=== PATIENT | male | born 1960 | race Caucasian/White ===

== ENCOUNTER → 2019-03-15 | Outpatient (CLI) | payer OTHER ==
[~2019-03-15] MED LIST: AMOXICILLIN 50500 MG PO; ASA81BEC PO; ELIQUIS5 MG PO; GLUCOTROL5 MG PO; METFORMIN HCL500 M3 PO; OXYCODONE HCL 55 MG PO; PENICILLIN V P500 MG PO; UNICOMPLEX M TA1 TA1 PO
== END ==
LOC: SJCVCIMAG 08:30
DX: E11.9 Type 2 diabetes mellitus without complications (principal); I73.9 Peripheral vascular disease, unspecified; Z87.891 Personal history of nicotine dependence; I70.202 Unspecified atherosclerosis of native arteries of extremities, left leg

== ENCOUNTER → 2019-03-16 | Outpatient (CLI) | payer OTHER ==
[~2019-03-16] MED LIST changes: -ASA81BEC PO
== END ==
LOC: CAT 13:20
DX: Z13.6 Encounter for screening for cardiovascular disorders (principal); E78.00 Pure hypercholesterolemia, unspecified; I25.10 Atherosclerotic heart disease of native coronary artery without angina pectoris

== ENCOUNTER → 2019-05-01 | Outpatient (CLI) | payer OTHER ==
[~2019-05-01] VITALS: Ht 180.3 cm; Wt 92.5 kg
[~2019-05-01] MED LIST changes: +ASA81BEC PO
[2019-05-01 07:32] VITALS: BP 116/75
[2019-05-01 08:11] LABS: HEMATOCRIT 42.5 % (42.0-52.0); MCH 28.4 pg (26.0-34.0); MCHC 32.8 g/dL (28.0-37.0); MCV 86.4 fL (80.0-100.0); RBC 4.92 mil/uL (4.50-6.00); RDW 13.4 % (10.5-14.5); WBC 6.2 thou/uL (4.0-11.0)
[2019-05-01 08:14] LABS: CALCIUM 9.2 mg/dL (8.5-10.1); CREATININE 0.9 mg/dL (0.7-1.3); POTASSIUM 3.7 mmol/L (3.5-5.1)
[2019-05-01 10:58] VITALS: BP 121/74
[2019-05-01 11:01] VITALS: BP 121/74
== END | disposition home or self-care (01) ==
LOC: CATH 04-19 12:52
PROVIDERS: Nuclear Medicine Nuclear Cardiology
DX: I70.212 Atherosclerosis of native arteries of extremities with intermittent claudication, left leg (principal); I70.1 Atherosclerosis of renal artery; I10 Essential (primary) hypertension; E11.9 Type 2 diabetes mellitus without complications; I25.10 Atherosclerotic heart disease of native coronary artery without angina pectoris; J44.9 Chronic obstructive pulmonary disease, unspecified; Z98.890 Other specified postprocedural states; Z79.899 Other long term (current) drug therapy; Z85.828 Personal history of other malignant neoplasm of skin; Z87.891 Personal history of nicotine dependence; Z88.8 Allergy status to other drugs, medicaments and biological substances; Z79.01 Long term (current) use of anticoagulants; Z86.711 Personal history of pulmonary embolism

== ENCOUNTER → 2019-10-13 | Outpatient (CLI) | payer OTHER | LOC: SJCVCIMAG 08:27 | PROVIDERS: ATTEND Nuclear Medicine Nuclear Cardiology | DX: T82.856A Stenosis of peripheral vascular stent, initial encounter (principal); M79.604 Pain in right leg; Y83.8 Other surgical procedures as the cause of abnormal reaction of the patient, or of later complication, without mention of misadventure at the time of the procedure; Y92.89 Other specified places as the place of occurrence of the external cause ==

== ENCOUNTER → 2019-10-30 | Outpatient (CLI) | payer OTHER ==
[~2019-10-30] MED LIST changes: +ALBUTEROL0.63 MG/3 NEB; +PLAVIX 75 MG TA75 M1 PO
[2019-10-30 08:49] VITALS: BP 128/80
[2019-10-30 08:53] LABS: HEMATOCRIT 43.9 % (42.0-52.0); HEMOGLOBIN 14.9 gm/dL (14.0-18.0); MCHC 33.9 g/dL (28.0-37.0); MCV 88.5 fL (80.0-100.0); RBC 4.95 mil/uL (4.50-6.00); RDW 14.4 % (10.5-14.5); WBC 5.3 thou/uL (4.0-11.0)
[2019-10-30 08:59] LABS: CALCIUM 8.8 mg/dL (8.5-10.1)
== END | disposition home or self-care (01) ==
LOC: CATH 08:11
PROVIDERS: ATTEND Nuclear Medicine Nuclear Cardiology
DX: I70.213 Atherosclerosis of native arteries of extremities with intermittent claudication, bilateral legs (principal); I70.1 Atherosclerosis of renal artery; I10 Essential (primary) hypertension; J44.9 Chronic obstructive pulmonary disease, unspecified; E11.9 Type 2 diabetes mellitus without complications; Z98.890 Other specified postprocedural states; Z79.899 Other long term (current) drug therapy; Z79.4 Long term (current) use of insulin; Z87.891 Personal history of nicotine dependence; Z88.8 Allergy status to other drugs, medicaments and biological substances

== ENCOUNTER → 2019-10-31 | Outpatient (CLI) | payer OTHER | LOC: SJCVCIMAG 11:20 | PROVIDERS: ATTEND Nuclear Medicine Nuclear Cardiology | DX: I73.9 Peripheral vascular disease, unspecified (principal); E11.51 Type 2 diabetes mellitus with diabetic peripheral angiopathy without gangrene; I82.402 Acute embolism and thrombosis of unspecified deep veins of left lower extremity; Z95.818 Presence of other cardiac implants and grafts; Z87.891 Personal history of nicotine dependence ==

== ENCOUNTER → 2020-01-30 | Outpatient (CLI) | payer OTHER ==
[~2020-01-30] MED LIST changes: +LIPITOR40 MG PO
== END ==
LOC: SJCVCIMAG 08:39
PROVIDERS: ATTEND Nuclear Medicine Nuclear Cardiology
DX: I73.9 Peripheral vascular disease, unspecified (principal); M79.605 Pain in left leg; Z95.828 Presence of other vascular implants and grafts; Z87.891 Personal history of nicotine dependence

== ENCOUNTER → 2020-01-31 | Outpatient (CLI) | payer OTHER ==
[~2020-01-31] VITALS: Ht 180.3 cm; Wt 95.3 kg
[2020-01-31 09:16] LABS: HEMATOCRIT 43.3 % (42.0-52.0); MCH 30.5 pg (26.0-34.0); MCHC 34.6 g/dL (28.0-37.0); MCV 88.2 fL (80.0-100.0); RBC 4.91 mil/uL (4.50-6.00); RDW 13.7 % (10.5-14.5); WBC 5.2 thou/uL (4.0-11.0)
[2020-01-31 09:24] VITALS: BP 106/68
[2020-01-31 09:25] LABS: CALCIUM 9.1 mg/dL (8.5-10.1); POTASSIUM 4.2 mmol/L (3.5-5.1)
[2020-01-31 09:31] LABS: ALBUMIN 3.7 g/dL (3.4-5.0); TOTAL BILIRUBIN 0.8 mg/dL (0.2-1.0); TOTAL PROTEIN 6.8 g/dL (6.4-8.2)
== END | disposition home or self-care (01) ==
LOC: CATH 08:30
PROVIDERS: ATTEND Nuclear Medicine Nuclear Cardiology
DX: I70.212 Atherosclerosis of native arteries of extremities with intermittent claudication, left leg (principal); I70.1 Atherosclerosis of renal artery; I10 Essential (primary) hypertension; E11.9 Type 2 diabetes mellitus without complications; J44.9 Chronic obstructive pulmonary disease, unspecified; I25.10 Atherosclerotic heart disease of native coronary artery without angina pectoris; Z98.890 Other specified postprocedural states; Z79.899 Other long term (current) drug therapy; Z79.4 Long term (current) use of insulin; Z79.891 Long term (current) use of opiate analgesic; Z85.828 Personal history of other malignant neoplasm of skin; Z87.891 Personal history of nicotine dependence; Z82.49 Family history of ischemic heart disease and other diseases of the circulatory system

== ENCOUNTER → 2020-05-01 | Outpatient (CLI) | payer OTHER | LOC: SJCVCIMAG 08:20 | PROVIDERS: ATTEND Nuclear Medicine Nuclear Cardiology | DX: I73.9 Peripheral vascular disease, unspecified (principal); M79.605 Pain in left leg; E11.9 Type 2 diabetes mellitus without complications; F17.201 Nicotine dependence, unspecified, in remission; Z95.828 Presence of other vascular implants and grafts ==

== ENCOUNTER → 2020-11-19 | Outpatient (CLI) | payer OTHER | LOC: SJCVCIMAG 08:59 | PROVIDERS: ATTEND Nuclear Medicine Nuclear Cardiology | DX: I65.23 Occlusion and stenosis of bilateral carotid arteries (principal); I73.9 Peripheral vascular disease, unspecified; I77.9 Disorder of arteries and arterioles, unspecified; I25.10 Atherosclerotic heart disease of native coronary artery without angina pectoris; J44.9 Chronic obstructive pulmonary disease, unspecified; E11.9 Type 2 diabetes mellitus without complications; E78.00 Pure hypercholesterolemia, unspecified; Z87.891 Personal history of nicotine dependence; Z72.89 Other problems related to lifestyle; Z79.82 Long term (current) use of aspirin; Z79.84 Long term (current) use of oral hypoglycemic drugs; Z79.899 Other long term (current) drug therapy; Z95.828 Presence of other vascular implants and grafts ==

== ENCOUNTER 2021-02-07 15:41 | Inpatient (IN) | payer OTHER ==
[2021-02-07] VITALS (11 sets, daily range): BP systolic 110–138; BP diastolic 50–70
[~2021-02-07] VITALS: Ht 180.3 cm; Wt 88.9 kg
--- NOTE | 2021-02-07 19:36 | NUR ---
rn received pt at 1750. pt was oriented, calm, opperative. rn asked pt questions to complete admission history and assessment. pt was informed that he needed to lay flat until after the catheter was removed which wasnt going to be removed until tomorrow per pathology laboratory aides teacher nurse. 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
[2021-02-08] VITALS (21 sets, daily range): BP systolic 101–134; BP diastolic 48–71
--- NOTE | 2021-02-08 03:43 | NUR ---
Care assumed at 0345. Rapid Covid test in progress per order Aj Mireles NP. Pt states he has been vaccinated, refused to allow test via nasal pharyngeal route because he is "too congested". Oropharyngeal route used.
--- NOTE | 2021-02-08 04:13 | NUR ---
Nursing Note Assumed care of patient at 1900 02/07/21. Calls to Dr. Morales at 1850, 1999, 2109; returned call at 2134; to clarify orders: admitting doctor, labs, medication instructions on tpa, poc for tomorrow (if needed NPO) additional pain medication/sleeping med, approx time for procedure; etc. Unable to locate orders per Dr. Morales; [employer]ERCIAL [employer]BER for hospitalist took over care of patient. Pain/sleep medication given. see emar Pt very frustrated at start of shift, many needs, wanting to eat, repositioned, pain meds, clothes, belongings locked up, etc- all requests filled; pt very appreciative. initial assessment of DP on left leg; unable to doppler; did doppler PT on left leg . Right leg were 2+ and palpable. Unable to locate documentation of left DP assessment in meditech/chart. Pt was experiencing more pain in LLE and toes felt cool to touch. RN applied multiple warm blankets and after an hour was able to doppler left DP with some difficulty- site now marked. Vitals have remained stable; pt frustrated with frequent BP; agreed to q2hr. right fem. sheath with some oozing; marked; has remained stable; TPA and integrilin infusing- per Dr. Morales - DO NOT TITRATE - or get additional labs other than CBC and BMP in a.m. sr/sb afebrile on ra Care transferred to Mar approx 0330 K JUAN BATISTA
[2021-02-08 07:03] LABS: CALCIUM 8.3 mg/dL (8.5-10.1); CREATININE 0.9 mg/dL (0.7-1.3); POTASSIUM 3.9 mmol/L (3.5-5.1)
[2021-02-08 07:06] LABS: HEMATOCRIT 41.1 % (42.0-52.0); HEMOGLOBIN 13.7 gm/dL (14.0-18.0); MCH 30.2 pg (26.0-34.0); MCHC 33.3 g/dL (28.0-37.0); MCV 90.5 fL (80.0-100.0); RBC 4.54 mil/uL (4.50-6.00); WBC 7.8 thou/uL (4.0-11.0)
--- NOTE | 2021-02-08 20:10 | NUR ---
PT ARRIVED FROM INTERVENTIONAL RADIOLOGY AT 1845. GROIN SITE C/D/I WITH NO EVIDENCE OF HEMATOMA. PT A&O X4. POST PROCEDURE VS INITIATED. PULSES ARE 2/2.
[2021-02-09] VITALS (15 sets, daily range): BP systolic 94–118; BP diastolic 46–68
--- NOTE | 2021-02-09 06:00 | NUR ---
PT AWAKE AND ALERT. PEDAL PULSES 2+ NO EDEMA. LUNGS CLEAR. RIGHT GROIN DSG INTACT. SINUS EDWIN TO SINUS RHYTHM. PT HOPINBG TO GO HOME TODAY AND BACK TO WORK. PROGRESSINBG TOWARD GOALS
== END 2021-02-09 12:30 | disposition home or self-care (01) | DRG 254 ==
LOC: CATH 15:41 → ICU 18:09
PROVIDERS: Nuclear Medicine Nuclear Cardiology; ADMIT Hospitalist; ATTEND Hospitalist
DX: T82.868A Thrombosis due to vascular prosthetic devices, implants and grafts, initial encounter (principal); J44.9 Chronic obstructive pulmonary disease, unspecified; I25.10 Atherosclerotic heart disease of native coronary artery without angina pectoris; G89.29 Other chronic pain; I10 Essential (primary) hypertension; F17.290 Nicotine dependence, other tobacco product, uncomplicated; M54.9 Dorsalgia, unspecified; E11.42 Type 2 diabetes mellitus with diabetic polyneuropathy; E11.51 Type 2 diabetes mellitus with diabetic peripheral angiopathy without gangrene; F12.90 Cannabis use, unspecified, uncomplicated; Y83.8 Other surgical procedures as the cause of abnormal reaction of the patient, or of later complication, without mention of misadventure at the time of the procedure; Z20.822 Contact with and (suspected) exposure to COVID-19; Z86.718 Personal history of other venous thrombosis and embolism; Z86.711 Personal history of pulmonary embolism; Z79.01 Long term (current) use of anticoagulants; Z85.828 Personal history of other malignant neoplasm of skin; Z83.3 Family history of diabetes mellitus; Z82.49 Family history of ischemic heart disease and other diseases of the circulatory system; Z88.5 Allergy status to narcotic agent; Z79.899 Other long term (current) drug therapy; Z79.82 Long term (current) use of aspirin; Y92.89 Other specified places as the place of occurrence of the external cause; Z95.820 Peripheral vascular angioplasty status with implants and grafts
CPT/HCPCS: 10204

== ENCOUNTER → 2021-02-07 | Outpatient (CLI) | payer OTHER | LOC: SJCVCIMAG 06:24 | PROVIDERS: ATTEND Nuclear Medicine Nuclear Cardiology | DX: I70.202 Unspecified atherosclerosis of native arteries of extremities, left leg (principal); I77.9 Disorder of arteries and arterioles, unspecified; I25.10 Atherosclerotic heart disease of native coronary artery without angina pectoris; J44.9 Chronic obstructive pulmonary disease, unspecified; E11.9 Type 2 diabetes mellitus without complications; Z82.49 Family history of ischemic heart disease and other diseases of the circulatory system; Z79.82 Long term (current) use of aspirin; Z79.4 Long term (current) use of insulin; Z79.899 Other long term (current) drug therapy; Z72.89 Other problems related to lifestyle; Z87.891 Personal history of nicotine dependence ==